=== PATIENT | female | born 1965 | race Caucasian/White ===

== ENCOUNTER 2020-03-17 07:30 | Outpatient (CLI) | payer BC, SELFPAY ==
--- NOTE | ~2020-03-17 | XR_ITS ---
EXAMINATION: XR knee LT 2V DATE: 03/17/2020 08:51 INDICATION: Left knee pain. TECHNIQUE: 2 views of left knee were obtained. COMPARISON: Left knee radiographs 01/19/2011 FINDINGS: Bone alignment is normal. No fracture. There is mild osteoarthritis of medial and patellofe moral compartments. No knee joint effusion. IMPRESSION: 1. Mild left knee osteoarthritis. Reviewed, dictated and finalized at location A.
--- NOTE | ~2020-03-17 | XR_ITS ---
EXAMINATION: XR lumbar spine 2-3V DATE: 03/17/2020 08:51 INDICATION: Low back pain TECHNIQUE: Anteroposterior and lateral views of the lumbar spine, and cone-down lateral view of the l umbosacral junction were obtained. COMPARISON: None. FINDINGS: There is no fracture, dislocation, or subluxation. The vertebral body heights and alignment are normal. There is mild loss of intervertebral disc space height at L5-S1. Small degenerative oste ophytes project from the anterior endplates of multiple vertebral bodies. IMPRESSION: 1. Mild lumbar spondylosis without acute findings. Reviewed, dictated and finalized at location A.
--- NOTE | ~2020-03-17 | XR_ITS ---
EXAMINATION: XR knee RT 2V DATE: 03/17/2020 08:51 INDICATION: Right knee pain. TECHNIQUE: 2 views of right knee were obtained. COMPARISON: Right knee radiographs 10/04/2014 FINDINGS: Bone alignment is normal. No fracture. There is mild osteoarthritis of medial and patellofe moral compartments. No knee joint effusion. IMPRESSION: 1. Mild right knee osteoarthritis. Reviewed, dictated and finalized at location A.
[2020-03-17 08:03] LABS: Hematocrit 38.4 % (37.0-47.0); Mean Corpuscular HGB Conc 33.9 g/dl (32-36); Mean Corpuscular Hemoglobin 29.5 pg (26-34); Mean Corpuscular Volume 87.3 fl (80-100); Mean Platelet Volume 10.6 fl (7.4-10.4); Platelet Count Result 271 k/mm3 (150-375); White Blood Count 6.4 K/mm3 (4.5-10.0)
[2020-03-17 08:22] LABS: Anion Gap 10 mmol/L (8-16); Blood Urea Nitrogen 18 mg/dL (7-17); Calcium 9.4 mg/dL (8.4-10.2); Carbon Dioxide 28 mmol/L (22-30); Chloride 105 mmol/L (98-107); Estimated Glomerular Filt Rate > 60; Glucose 103 mg/dL (65-105); Potassium 3.9 mmol/L (3.4-5.0); Sodium 143 mmol/L (137-145)
--- NOTE | 2020-03-17 08:28 | ECG_ITS ---
Measurements Intervals [place] Rate: 71 P: 23 ND: 154 QRS: 7 QRSD: 98 T: 18 QT: 401 QTc: 437 Interpretive Statements SINUS RHYTHM BORDERLINE T WAVE ABNORMALITY- ANTERIOR LEADS BORDERLINE ECG Electronically Signed On 03-17-2020 8:37:55 CDT by Florencio Johnson D.O.
== END 2020-03-17 07:31 | disposition home or self-care (01) ==
PROVIDERS: PCP Family Medicine; Visit Provider Nurse Practitioner Family
DX: F41.9 Anxiety disorder, unspecified (principal); M79.603 Pain in arm, unspecified; M47.896 Other spondylosis, lumbar region; M17.0 Bilateral primary osteoarthritis of knee; R94.31 Abnormal electrocardiogram [ECG] [EKG]
CPT/HCPCS: 36415; 72100; 73560; 80048; 84443; 85027; 93005

== ENCOUNTER 2020-03-28 09:44 | Outpatient (CLI) | payer BC, SELFPAY ==
--- NOTE | 2020-04-04 14:32 | WPDHOLTEREM ---
Holter/Event Monitor Holter/Event Monitor Date of procedure: 03/28/20 Procedure Type: 48 hour holter monitor Indications: Abnormal EKG Conclusion: 1. 48 hour holter monitor on 03/28/20. 2. Underlying rhythm is sinus rhythm. HR range 58-121 bpm; average HR 84 bpm. 3. There are 23 premature supraventricular complexes. No supraventricular tachycardia. 4. There are 273 premature ventricular complexes and 2 ventricular couplets. No ventricular tachycardia. 5. No sinoatrial or atrioventricular blocks. No significant pauses greater than 2 seconds. 6. No symptoms available for correlation.
== END 2020-03-28 09:45 | disposition home or self-care (01) ==
PROVIDERS: PCP Family Medicine; Visit Provider Nurse Practitioner Family
DX: R94.31 Abnormal electrocardiogram [ECG] [EKG] (principal)
CPT/HCPCS: 93225; 93226

== ENCOUNTER 2020-05-18 08:20 | Outpatient (CLI) | payer BC, SELFPAY ==
--- NOTE | 2020-05-18 08:47 | EST_ITS ---
Patient Info Name: Rosa Guerin Age: 54 years : 1965 Gender: Female Ht: 64 in Wt: 255 lbs BSA: 2.35 m2 Exam Date: 05/18/2020 10:21 AM Exam Location: [facility] Stress Patient Status: Outpatient Admit Date: 05/18/2020 Staff Ordering Physician: Rosa Maria Gamino NP Attending Provider: Rosa Maria Gamino NP Exercise Technologist: Wendy Viveros, CARL Exercise Physician: Florencio Johnson DO Exam Type: CA stress test treadmill Study Info Indications R94.31 - Abnormal electrocardiogram ECG EKG A treadmill exercise stress test was performed. Summary 1. 1. Negative Miguel exercise stress test for ischemic ST changes by ECG criteria. 2. 2. Reduced functional capacity, achieving 7 METs of workload. 3. 3. Baseline hypertension. 4. 4. Appropriate HR response to exercise. 5. 5. Appropriate HR recovery at 1 minute post exercise. 6. 6. No imaging with stress testing. 7. 7. Patient informed of the above results. Protocol: Miguel Stress ECG Details Stage: REST Duration (min): 9 min : 33 sec Speed (mph): 0.0 Grade (%): 0 HR (bpm): 87 SBP (mmHg): 170 DBP (mmHg): 103 METS: --- Stage: STAGE 1 Duration (min): 1 min : 0 sec Speed (mph): 1.7 Grade (%): 10 HR (bpm): 110 SBP (mmHg): 170 DBP (mmHg): 103 METS: --- Stage: STAGE 1 Duration (min): 2 min : 0 sec Speed (mph): 1.7 Grade (%): 10 HR (bpm): 120 SBP (mmHg): 170 DBP (mmHg): 103 METS: --- Stage: STAGE 1 Duration (min): 3 min : 0 sec Speed (mph): 1.7 Grade (%): 10 HR (bpm): 129 SBP (mmHg): 204 DBP (mmHg): 101 METS: --- Stage: STAGE 2 Duration (min): 1 min : 0 sec Speed (mph): 2.5 Grade (%): 12 HR (bpm): 145 SBP (mmHg): 204 DBP (mmHg): 101 METS: --- Stage: STAGE 2 Duration (min): 1 min : 54 sec Speed (mph): 2.5 Grade (%): 12 HR (bpm): 150 SBP (mmHg): 212 DBP (mmHg): 98 METS: --- Stage: RECOVERY Duration (min): 0 min : 5 sec Speed (mph): 1.5 Grade (%): 0 HR (bpm): 151 SBP (mmHg): 212 DBP (mmHg): 98 METS: --- Stage: RECOVERY Duration (min): 1 min : 5 sec Speed (mph): 0.0 Grade (%): 0 HR (bpm): 127 SBP (mmHg): 212 DBP (mmHg): 98 METS: --- Stage: RECOVERY Duration (min): 2 min : 5 sec Speed (mph): 0.0 Grade (%): 0 HR (bpm): 112 SBP (mmHg): 210 DBP (mmHg): 112 METS: --- Stage: RECOVERY Duration (min): 3 min : 5 sec Speed (mph): 0.0 Grade (%): 0 HR (bpm): 103 SBP (mmHg): 206 DBP (mmHg): 101 METS: --- Stage: RECOVERY Duration (min): 4 min : 5 sec Speed (mph): 0.0 Grade (%): 0 HR (bpm): 100 SBP (mmHg): 206 DBP (mmHg): 101 METS: --- Stage: RECOVERY Duration (min): 5 min : 3 sec Speed (mph): 0.0 Grade (%): 0 HR (bpm): 100 SBP (mmHg): 197 DBP (mmHg): 100 METS: --- Rest HR: 87 bpm Peak HR: 151
--- NOTE | 2020-05-18 08:47 | ECHO_ITS ---
Patient Info Name: Rosa Conde Age: 54 years : 1965 Gender: Female Ht: 64 in Wt: 255 lbs BSA: 2.35 m2 HR: 87 bpm BP: 168 / 108 mmHg Heart Rhythm: Sinus Rhythm Technical Quality: Good Exam Date: 05/18/2020 8:59 AM Exam Location: [facility] Pulmonary Patient Status: Outpatient Admit Date: 05/18/2020 Staff Ordering Physician: Rosa Maria Gamino NP Hospital Chief Financial Officer: Maile Sanchez RDCS Attending Provider: Rosa Maria Gamino NP Referring Physician: Hanny PEREZ; Exam Type: CA echo doppler color flow Study Info Indications - abn ekg Complete two-dimensional, color flow and Doppler transthoracic echocardiogram is performed. Summary 1. Complete two-dimensional, color flow and Doppler transthoracic echocardiogram is performed. 2. Left ventricular chamber dimension is normal. 3. Left ventricular systolic function is normal, estimated at 60-65%. 4. There is mildly increased left ventricular wall thickness. 5. Left ventricular septal wall motion is normal. 6. The left ventricular diastolic function is grade I diastolic dysfunction. 7. There is mild mitral valve regurgitation. 8. There is mild tricuspid valve regurgitation. 9. Mild pulmonary hypertension, estimated pulmonary arterial systolic pressure is 40 mmHg. Left Ventricle Left ventricular chamber dimension is normal. Left ventricular systolic function is normal, estimated at 60-65%. There is mildly increased left ventricular wall thickness. Left ventricular septal wall motion is normal. The left ventricular diastolic function is grade I diastolic dysfunction. Right Ventricle Right ventricular chamber dimension is normal. Right ventricular systolic function is normal. Left Atria Left atrial chamber dimension is normal. Right Atria Right atrial chamber dimension is normal. Atrial Septum Intact interatrial septum visualized by color flow imaging. Aortic Valve The aortic valve is trileaflet. There is mild aortic valve sclerosis. There is no aortic valve stenosis. There is trace aortic valve regurgitation. Pulmonic Valve The pulmonic valve is normal. There is no pulmonic valve stenosis. There is trace pulmonic regurgitation. Mitral Valve The mitral valve has normal leaflets. There is no mitral valve stenosis. There is mild mitral valve regurgitation. Tricuspid Valve The tricuspid valve leaflets are normal. There is no significant tricuspid valve stenosis. There is mild tricuspid valve regurgitation. Mild pulmonary hypertension, estimated pulmonary arterial systolic pressure is 40 mmHg. Pericardium/Pleural The pericardium appears normal. There is no pericardial effusion. Inferior Vena Cava Normal inferior vena cava with >50% collapse upon inspiration consistent with normal right atrial pressure, 10 mmHg. Aorta The aortic root size at the sinus of Valsalva is normal. The prox ascending aorta size is normal. Left Ventricular Outflow Tract Name Value Normal LVOT 2D LVOT Diameter 2.0 cm LVOT Doppler LVOT Peak Gradient 6 mmHg LVOT Mean Gradient
== END 2020-05-18 08:21 | disposition home or self-care (01) ==
LOC: ANHCARD 08:24
PROVIDERS: PCP Family Medicine; Visit Provider Nurse Practitioner Family
DX: R94.31 Abnormal electrocardiogram [ECG] [EKG] (principal); I08.3 Combined rheumatic disorders of mitral, aortic and tricuspid valves
CPT/HCPCS: 93017; 93306

== ENCOUNTER → 2020-06-29 15:28 | Outpatient (REF) | payer BC, SELFPAY | LOC: ANHLAB 15:28 | PROVIDERS: Family Provider Family Medicine; PCP Family Medicine; Visit Provider Nurse Practitioner | DX: L72.11 Pilar cyst (principal) | CPT/HCPCS: 88304 ==

== ENCOUNTER 2021-07-26 08:39 | Outpatient (CLI) | payer BC, SELFPAY ==
[2021-07-26 09:37] LABS: Cholesterol 250 mg/dL (0-200); HDL Direct 84 mg/dL; Triglycerides 279 mg/dL (<150)
[2021-07-26 09:48] LABS: LDL Cholesterol Direct 113 mg/dL
== END 2021-07-26 08:40 | disposition home or self-care (01) ==
LOC: ANHLAB 08:42
PROVIDERS: PCP Family Medicine; Visit Provider Nurse Practitioner Family
DX: E78.2 Mixed hyperlipidemia (principal)
CPT/HCPCS: 36415; 80061

== ENCOUNTER 2022-10-18 01:47 | Day surgery (SDC) | payer BC, SELFPAY ==
[2022-10-07 11:41] VITALS: BMI 43.1
[2022-10-18 08:53] VITALS: BP 184/82; PULSE 70; RESP 16; TEMP 36.1; O2SAT 100; BMI 42.7
[2022-10-18] MEDS: LACTATED RINGERS 1,000 ML 150 ML IV CONT (09:02)
--- NOTE | 2022-10-18 09:18 | PM.HPGS ---
History of Present Illness History of Present Illness Consent: Risks, benefits, and alternatives have been discussed and questions answered. Patient agrees to proceed with procedure. Chief complaint: neoplasm screening Narrative: Rosa Harris is a 57 year old female Presents for screening colonoscopy. Patient's current weight appetite and bowel movements are normal. Patient denies abdominal pain. She has had no bleeding. Patient has never had a previous colonoscopy. She has had been treated for Taty of esophagitis and had several endoscopies by Dr. Grimes in 2006. Review of Systems Review of Systems: Review of systems noncontributory. [facility] Past Medical History Medical History Adult BMI 37.0-37.9 kg/sq m Well adult exam Family History Family History Grandparent Hypertension Family history of coronary artery disease Diabetes mellitus Mother Family history of coronary artery disease Family history of seizure disorder Father , Covid-19 No problems noted. Sibling No problems noted. 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 Gender identity (if verbalized by the patient): Female Spiritual care concerns: No Meds Home Medications and Allergies Home Medications Medication Instructions Recorded Confirmed Type omeprazole 20 mg tablet,delayed 20 mg PO DAILY 05/18/20 10/18/22 History release atorvastatin 20 mg tablet See Rx Instructions .Route 06/03/22 10/18/22 Rx .COMPLEX #90 tabs losartan 100 1 tablet PO DAILY #90 tabs 06/03/22 10/18/22 Rx mg-hydrochlorothiazide 25 mg tablet metoprolol succinate 100 mg 150 mg PO DAILY hypertension #45 10/08/22 10/18/22 Rx tablet,extended release 24 hr tabs tramadol 50 mg tablet 50 mg PO Q4H PRN pain #90 tabs 10/08/22 10/18/22 Rx Allergies Allergy/AdvReac Type Severity Reaction Status Date / Time No Known Allergies Allergy Mild Verified 10/18/22 08:51 Vital Signs Vital Signs - 24 hr 10/18/22 08:53 Temperature 97.0 F L Pulse Rate 70 Respiratory Rate 16 Blood Pressure 184/82 H Pulse Oximetry 100 Oxygen Delivery Room Air Exam Narrative: Physical exam reveals patient to be alert. Vital signs stable. HEENT exam is unremarkable. Patient is anicteric. Lungs are clear to auscultation and percussion. Heart is without murmur or extra sounds. Abdomen bowel sounds are present soft nontender with no organomegaly. Digital external rectal exam is normal. Assessment and Plan Assessment and plan (1) Screen for colon cancer: Code(s): Z12.11 - Encounter for screening for malignant neoplasm of colon Status: Acute Assessment and Plan: Patient presents today for screening colonoscopy. She appears to be at average risk for colon polyps. Further recommendations will be given after endoscopy.
--- NOTE | 2022-10-18 10:16 | WPDANESEPPF ---
Anes - Initial Pre Proc Eval Procedure: Operation Date: 10/18/22 10:00 Proposed Procedures p Screening Colonoscopy - David Bashir MD Date/Time: 10/18/22 10:16 Surgeon: David Bashir MD Pre Op Diagnosis: neoplasm screening Patient Data Age: 57 Gender: F Height: 1.63 m Weight: 113.1 kg Last Vital Signs Temp 97.0 F L 10/18/22 08:53 Pulse 70 10/18/22 08:53 Resp 16 10/18/22 08:53 BP 184/82 H 10/18/22 08:53 Pulse Ox 100 10/18/22 08:53 O2 Del Method Room Air 10/18/22 08:53 Allergies Allergy/AdvReac Type Severity Reaction Status Date / Time No Known Allergies Allergy Mild Verified 10/18/22 08:51 Home Medications Medication Instructions Recorded Confirmed Type omeprazole 20 mg tablet,delayed 20 mg PO DAILY 05/18/20 10/18/22 History release atorvastatin 20 mg tablet See Rx Instructions .Route 06/03/22 10/18/22 Rx .COMPLEX #90 tabs losartan 100 1 tablet PO DAILY #90 tabs 06/03/22 10/18/22 Rx mg-hydrochlorothiazide 25 mg tablet metoprolol succinate 100 mg 150 mg PO DAILY hypertension #45 10/08/22 10/18/22 Rx tablet,extended release 24 hr tabs tramadol 50 mg tablet 50 mg PO Q4H PRN pain #90 tabs 10/08/22 10/18/22 Rx Patient hx anesthesia problems: none Family hx anesthesia problems: none Results Review: All pre-operative results and documents have been reviewed as part of the pre-operative evaluation. [facility] Past Medical History Medical History Adult BMI 37.0-37.9 kg/sq m Well adult exam Family History Family History Grandparent Hypertension Family history of coronary artery disease Diabetes mellitus Mother Family history of coronary artery disease Family history of seizure disorder Father , Covid-19 No problems noted. Sibling No problems noted. 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 Informed Consent: The patient's anesthetic plan and its attendant risks and benefits were discussed with the patient/family/POA. Questions were solicited and answers provided to the satisfaction of the patient/family/POA.
[2022-10-18 10:47] VITALS: BP 123/71; PULSE 78; RESP 18; O2SAT 99
[2022-10-18 10:57] VITALS: BP 124/77; PULSE 68; RESP 18; O2SAT 100
[2022-10-18 11:07] VITALS: BP 141/75; PULSE 68; RESP 18; O2SAT 100
== END 2022-10-18 11:16 | disposition home or self-care (01) ==
PROVIDERS: PCP Family Medicine; Visit Provider Internal Medicine Gastroenterology
PROC: 0DJD8ZZ Inspection of Lower Intestinal Tract, Via Natural or Artificial Opening Endoscopic (ICD-10-PCS; CPT 45378; principal; 2022-10-18 10:00)
DX: Z12.11 Encounter for screening for malignant neoplasm of colon (principal); D12.2 Benign neoplasm of ascending colon; K63.5 Polyp of colon; K57.30 Diverticulosis of large intestine without perforation or abscess without bleeding; K64.8 Other hemorrhoids
CPT/HCPCS: 45380; 88305; J2704; J7120

== ENCOUNTER 2024-08-18 11:02 | Outpatient (CLI) | payer BC, SELFPAY ==
--- NOTE | ~2024-08-18 | US_ITS ---
Please refer to diagnostic mammogram report dated 08/18/2024 for details. Reviewed, dictated and finalized at location B.
--- NOTE | ~2024-08-18 | MM_ITS ---
EXAMINATION: MM diagnostic zeina BI w justin HISTORY: Mastodynia TECHNIQUE: Additional 3-D tomosynthesis images of the breasts were performed and synthetic 2-D images were generated. CAD analysis was submitted and interpreted. High resolution Limited left breast ultr asound was performed. COMPARISON: None BREAST PARENCHYMAL COMPOSITION: Not dense: There are scattered areas of fibroglandular density. FINDINGS: MAMMOGRAPHIC FINDINGS: Not dense: There are scattered areas of fibroglandular density. ULTRASOUND: Limited left breast ultrasound: There are left axillary lymph nodes, one of which appears enlarged me asuring 2.1 x 1.9 x 0.7 cm with normal fatty hilum. No cortical thickening. IMPRESSION: 1. Probable benign enlarged left axillary lymph nodes without cortical thickening, likely reactive. 2. Recommend 6 month follow-up left axillary ultrasound BI-RADS category 3, probably benign findings. Reviewed, dictated and finalized at location B. IMPRESSION: 1. Probable benign enlarged left axillary lymph nodes without cortical thickeni ng, likely reactive. 2. Recommend 6 month follow-up left axillary ultrasound BI-RADS category 3, probably benign findings.
--- OUTSIDE RECORDS SUMMARY | 2024-08-18 12:56 | XMS_ITS | Clinical Summary ---
Author Organization [facility] Address [address] [place] [address] Care Team Providers Care Curriculum Specialist Name Role Phone Shashi Diehl MD Primary Care Provider [phone] Source Comments [facility] and Associated Physician Practices is amultiple site organization consisting of ambulatory clinics and hospital sitesin [place], [place], [place] and [place]. This disclosure is being madepursuant to the Care Everywhere program and may not contain all information available regarding this patient. Last updated 18.[facility] [employer] Allergies No known active allergies Social History Tobacco Use Types Packs/Day Years Used Date Smoking Tobacco: Never Assessed Sex and Gender Information Value Date Recorded Sex Assigned at Not on file Gender Identity Not on file Sexual Orientation Not on file Last Filed Vital Signs Vital Sign Reading Time Taken Comments Blood Pressure 153/92 01/13/2022 4:00 PM CDT Pulse 88 01/13/2022 5:00 PM CDT Temperature 36.8 C (98.2 F) 01/13/2022 12:45 PM CDT Respiratory Rate 16 01/13/2022 5:00 PM CDT Oxygen Saturation 98% 01/13/2022 5:00 PM CDT Inhaled Oxygen Concentration - - Weight 112.5 kg (248 lb) 01/13/2022 10:26 AM CDT Height 162.6 cm (5' 4 ) 01/13/2022 10:26 AM CDT Body Mass Index 42.57 01/13/2022 10:26 AM CDT Plan of Treatment Health Maintenance Due Date Last Done Comments COLOGUARD (AGES 45-75) - COL ON CA SCREENING 1965 COLON MONITORING 1965 COLONOSCOPY - COLON CA SCREENING 1966 CT COLONOGRAPHY - COLON CA SCREENING 1965 Colorectal Cancer Screening 1965 FIT - COLON CA SCREENING 1965 FLEX SIG - COLON CA SCREENING 1965 MAMMOGRAM 1965 PAP SMEAR 1965 HIV SCREENING 1981 HEPATITIS C SCREENING 08/28/1984 DTAP/TDAP/TD VACCINES (1 - Tdap) 1985 HEPATITIS B VACCINE (1 of 3 - 19+ 3-dose series) 1985 PNEUMOCOCCAL VACCINE 50+ (1 of 1 - PCV) 2016 ZOSTER VACCINE (1 of 2) 2016 COVID-19 VACCINE (3 - 2023-2 5 season) 2024 06/30/2021, 08/08/2020 INFLUENZA VACCINE (#1) 2024 , 03/02/2017 DEPRESSION SCREENING 06/02/2024 LIPID TESTING 07/28/2025 07/28/2020 HIB VACCINE Aged Out No longer eligi ble based on patient's age to complete this topic HPV VACCINE Aged Out No longer eligi ble based on patient's age to complete this topic MENINGOCOCCAL (Group B) VACCINE SHARED DECISION-MAKING Aged Out No longer eligible based on patient's age to complete this topic MENINGOCOCCAL GROUPS A/C/Y/W VACCINE Aged Out No longer eligible b ased on patient's age to complete this topic PNEUMOCOCCAL VACCINE Aged Out No long er eligible based on patient's age to complete this topic Care Teams Curriculum Specialist Relationship Specialty Start Date End Date Shashi Diehl MD [address] [place] [address] PCP - General 07/03/20
== END 2024-08-18 11:03 | disposition home or self-care (01) ==
LOC: ANHIMG 11:05
PROVIDERS: PCP Family Medicine; Visit Provider Nurse Practitioner Family
DX: N64.4 Mastodynia (principal); Z98.82 Breast implant status
CPT/HCPCS: 76642; 77062; 77066; G0279

== ENCOUNTER 2025-03-10 14:42 | Outpatient (CLI) | payer BC, SELFPAY ==
--- NOTE | ~2025-03-10 | US_ITS ---
EXAMINATION: US axilla LT INDICATION: 59-year old female; BI-RADS 3, follow-up on probably benign enlarged left axillary lymph node. Patient still has ongoing pain in the left axilla. COMPARISON: 08/18/2024 TECHNIQUE: Targeted sonographic evaluation of the area of pain identified by the patient in the LEFT axilla was completed. FINDINGS: There are several prominent lymph nodes seen in the left axilla that demonstrate predominant fatty linh and seen cortex compatible with benign lymph nodes. These lymph nodes seen also correlates to the area of pain. IMPRESSION: Probably benign LEFT axillary lymph nodes. RECOMMENDATION: Clinical management of patient's axillary pain. 6 month follow-up left axillary ultrasound BI-RADS 3, PROBABLY BENIGN Reviewed, dictated and finalized at location B.
== END 2025-03-10 14:43 | disposition home or self-care (01) ==
LOC: MICIMG 14:43
PROVIDERS: PCP Family Medicine; Visit Provider Nurse Practitioner Adult Health
DX: D36.0 Benign neoplasm of lymph nodes (principal); M79.622 Pain in left upper arm
CPT/HCPCS: 76882